=== PATIENT | male | born 1960 | race American Indian/Alaskan Native ===

== ENCOUNTER 2018-06-10 20:35 | Emergency (ER) | payer MEDICARE ==
[2018-06-10] MEDS ORDERED: BENADRYL IV ONE (20:53)
[2018-06-10] MEDS ORDERED: REGLAN IV ONE (20:53)
[2018-06-10 21:02] LABS: Basophils # (Auto) 0.1 K/mm3 (0.0-0.1); Basophils % (Auto) 0.8 % (0.0-1.8); Eosinophils # (Auto) 0.2 K/mm3 (0.0-0.4); Eosinophils % (Auto) 1.5 % (0.0-4.3); Hematocrit 44.4 % (35.5-45.6); Hemoglobin 14.8 gm/dl (11.8-15.2); Lymphocytes # (Auto) 3.1 K/mm3 (1.2-5.4); Lymphocytes % (Auto) 20.3 % (13.4-35.0); Mean Corpuscular HGB Conc 33 % (32-34); Mean Corpuscular Hemoglobin 31 pg (28-32); Mean Corpuscular Volume 92 fl (84-94); Monocytes # (Auto) 0.9 K/mm3 (0.0-0.8); Monocytes % (Auto) 5.7 % (0.0-7.3); Platelet Count 157 K/mm3 (140-440); Red Blood Count 4.84 M/mm3 (3.65-5.03); Red Cell Distribution Width 14.7 % (13.2-15.2)
[2018-06-10 21:18] LABS: BUN/Creatinine Ratio 13; Blood Urea Nitrogen 17 mg/dL (9-20); Calcium 9.3 mg/dL (8.4-10.2); Hemolysis Index 147
--- NOTE | 2018-06-10 22:33 | Cat Scan Report ---
FINAL REPORT PROCEDURE: CT HEAD/BRAIN WO CON TECHNIQUE: Computerized tomography of the head was performed without contrast material. HISTORY: headache COMPARISON: No prior studies are available for comparison. FINDINGS: There has been left frontal craniotomy. There are coils at the left skullbase. There is involutional change with ex vacuo dilatation of the left frontal and temporal horns. There is chronic ischemic change involving left basal ganglia. There is no CT evidence of intracranial mass, hemorrhage, acute territorial infarction, or hydrocephalus. No acute fracture is seen. Visualized paranasal sinuses and mastoids are aerated. IMPRESSION: Postsurgical changes and chronic changes as described above. No CT evidence of acute intracranial abnormality
--- NOTE | 2018-06-11 01:16 | Emergency Department Report ---
ED General Adult HPI - General Chief complaint: Neuro Symptoms/Deficit Stated complaint: HEAD PAIN Time Seen by Provider: 06/10/18 20:53 Source: EMS Mode of arrival: Stretcher Limitations: No Limitations - History of Present Illness Initial comments: Patient is a 57 year old male pmhx of brain aneurysm who presents with a headache. Patient's pain is located at the front of his forehead. Nothing makes the pain better or worse. He states He states that he felt that hsi body got weak. He denies any nausea or vomiting. He states that he smokes a ppd. - Related Data Previous Rx's Medication Instructions Recorded Last Taken Type Labetalol [Normodyne TAB] 200 mg PO BID #60 tablet 03/16/14 10/20/15 Rx Lisinopril [Zestril TAB] 20 mg PO BID #60 tablet 03/16/14 10/20/15 Rx Pantoprazole [Protonix] 40 mg PO QDAY #30 tablet 03/16/14 10/20/15 Rx hydrALAZINE [Apresoline TAB] 50 mg PO Q8HR #90 tablet 03/16/14 10/20/15 Rx traMADol [Ultram] 50 mg PO Q4HR PRN #20 tablet 10/08/15 10/20/15 Rx Butalb/Acetamin/Caff 50-325-40 1 tab PO Q8HR PRN #20 tablet 06/11/18 Unknown Rx [Fioricet] Allergies Allergy/AdvReac Type Severity Reaction Status Date / Time Penicillins AdvReac Hives Verified 03/13/14 13:44 ED Review of Systems ROS: Stated complaint: HEAD PAIN Other details as noted in HPI Constitutional: denies: chills, fever Eyes: denies: eye pain, eye discharge, vision change ENT: denies: ear pain, throat pain Respiratory: denies: cough, shortness of breath, wheezing Cardiovascular: denies: chest pain, palpitations Endocrine: no symptoms reported Gastrointestinal: denies: abdominal pain, nausea, diarrhea Genitourinary: denies: urgency, dysuria Musculoskeletal: denies: back pain, joint swelling, arthralgia Skin: denies: rash, lesions Neurological: headache. denies: weakness, paresthesias Psychiatric: denies: anxiety, depression Hematological/Lymphatic: denies: easy bleeding, easy bruising ED Past Medical Hx - Past Medical History Previous Medical History?: Yes Hx Hypertension: Yes Hx Congestive Heart Failure: No Hx Diabetes: No Hx Asthma: No Hx COPD: No Additional medical history: brain aneuysysm, stomach cancer - Surgical History Past Surgical History?: Yes Additional Surgical History: brain, abd - Social History Smoking Status: Current Every Day Smoker Substance Use Type: None - Medications Home Medications: Home Medications Medication Instructions Recorded Confirmed Last Taken Type Labetalol [Normodyne TAB] 200 mg PO BID #60 tablet 03/16/14 10/21/15 10/20/15 Rx Lisinopril [Zestril TAB] 20 mg PO BID #60 tablet 03/16/14 10/21/15 10/20/15 Rx Pantoprazole [Protonix] 40 mg PO QDAY #30 tablet 03/16/14 10/21/15 10/20/15 Rx hydrALAZINE [Apresoline TAB] 50 mg PO Q8HR #90 tablet 03/16/14 10/21/15 Rx traMADol [Ultram] 50 mg PO Q4HR PRN #20 tablet 10/08/15 10/21/15 10/20/15 Rx Butalb/Acetamin/Caff 50-325-40 1 tab PO Q8HR PRN #20 tablet 06/11/18 Unknown Rx [Fioricet] ED Physical Exam - General Limitations: No Limitations General appearance: alert, in no apparent distress - Head Head exam: Present: atraumatic, normocephalic - Eye Eye exam: Present: normal appearance - ENT ENT exam: Present: mucous membranes moist - Neck Neck exam: Present: normal inspection - Respiratory Respiratory exam: Present: normal lung sounds bilaterally. Absent: respiratory distress - Cardiovascular Cardiovascular Exam: Present: regular rate, normal rhythm. Absent: systolic murmur, diastolic murmur, rubs, gallop - GI/Abdominal GI/Abdominal exam: Present: soft, normal bowel sounds - Rectal Rectal exam: Present: deferred - Extremities Exam Extremities exam: Present: normal inspection - Back Exam Back exam: Present: normal inspection - Neurological Exam Neurological exam: Present: alert, oriented X3 - Psychiatric Psychiatric exam: Present: normal affect, normal mood - Skin Skin exam: Present: warm, dry, intact, normal color. Absent: rash ED Course Vital Signs 06/10/18 06/10/18 06/10/18 20:55 21:16 21:30 Temperature 97.3 F L Pulse Rate 53 L 55 L 56 L Respiratory 18 20 13 Rate Blood Pressure 122/53 104/74 122/83 O2 Sat by Pulse 92 99 100 Oximetry 06/10/18 06/10/18 06/10/18 21:45 22:16 22:30 Temperature Pulse Rate 58 L 58 L 58 L Respiratory 14 11 L 13 Rate Blood Pressure 114/77 113/74 106/74 O2 Sat by Pulse 100 100 100 Oximetry 06/10/18 06/10/18 06/10/18 22:39 22:46 23:00 Temperature Pulse Rate 55 L 56 L Respiratory 20 11 L 13 Rate Blood Pressure 112/74 104/72 O2 Sat by Pulse 100 100 100 Oximetry 06/10/18 06/10/18 06/10/18 23:16 23:30 23:46 Temperature Pulse Rate 58 L 57 L 58 L Respiratory 11 L 11 L 11 L Rate Blood Pressure 104/72 104/72 108/71 O2 Sat by Pulse 100 100 100 Oximetry 06/11/18 00:00 Temperature Pulse Rate 54 L Respiratory 13 Rate Blood Pressure 105/72 O2 Sat by Pulse 99 Oximetry ED Medical Decision Making - Lab Data Result diagrams: 06/10/18 20:49 06/10/18 21:00 Lab Results 06/10/18 06/10/18 Range/Units 20:49 21:00 WBC 15.1 H (4.5-11.0) K/mm3 RBC 4.84 (3.65-5.03) M/mm3 Hgb 14.8 (11.8-15.2) gm/dl Hct 44.4 (35.5-45.6) % MCV 92 (84-94) fl MCH 31 (28-32) pg MCHC 33 (32-34) % RDW 14.7 (13.2-15.2) % Plt Count 157 (140-440) K/mm3 Lymph % (Auto) 20.3 (13.4-35.0) % Tripp % (Auto) 5.7 (0.0-7.3) % Eos % (Auto) 1.5 (0.0-4.3) % Baso % (Auto) 0.8 (0.0-1.8) % Lymph # 3.1 (1.2-5.4) K/mm3 Tripp # 0.9 H (0.0-0.8) K/mm3 Eos # 0.2 (0.0-0.4) K/mm3 Baso # 0.1 (0.0-0.1) K/mm3 Seg Neutrophils % 71.7 H (40.0-70.0) % Seg Neutrophils # 10.8 H (1.8-7.7) K/mm3 Sodium 138 (137-145) mmol/L Potassium 5.4 H (3.6-5.0) mmol/L Chloride 102.8 (98-107) mmol/L Carbon Dioxide 22 (22-30) mmol/L Anion Gap 19 mmol/L BUN 17 (9-20) mg/dL Creatinine 1.3 (0.8-1.5) mg/dL Estimated GFR > 60 ml/min BUN/Creatinine Ratio 13 % Glucose 126 H (75-100) mg/dL Calcium 9.3 (8.4-10.2) mg/dL - EKG Data -: EKG Interpreted by Me - EKG Data 06/11/18 01:22 EKG shows normal sinus rhythm no ST segment elevation or T wave Inversion - Radiology Data Radiology results: report reviewed, image reviewed CT Head: shows prior surgical clipping no acute intracranial bleed - Medical Decision Making Cdx: Tension Headache ddx: Subdural hemorrhage, Migraine Headache I will give headache cocktail, ct scan of head, cbc, bmp and ekg CT scan shows prior surgical clipping of aneurysm but no acute intracrainal bleed. Patient is feeling better I will send patient home with [facility]. 06/11/18 01:26 Spent 5 minutes talking about tobacco cessation counseling and nicotine patch and gum. Critical care attestation.: If time is entered above; I have spent that time in minutes in the direct care of this critically ill patient, excluding procedure time. ED Disposition Clinical Impression: Tension headache, Tobacco abuse, Tobacco abuse counseling Disposition: TO HOME OR SELFCARE Is pt being admited?: No Does the pt Need Aspirin: No Condition: Stable Prescriptions: Butalb/Acetamin/Caff 50-325-40 [Fioricet] 1 tab PO Q8HR PRN #20 tablet PRN Reason: Headache Referrals: ONEL LAND MD [Staff Physician] - 3-5 Days
[2018-06-11 02:32] VITALS: BP 102/66
== END 2018-06-11 02:19 | disposition home or self-care (01) ==
LOC: ED 20:35
DX: F19.10 Other psychoactive substance abuse, uncomplicated (principal); I10 Essential (primary) hypertension; F17.200 Nicotine dependence, unspecified, uncomplicated; Z88.0 Allergy status to penicillin; Z85.028 Personal history of other malignant neoplasm of stomach; Z79.899 Other long term (current) drug therapy
CPT/HCPCS: 36415; 70450; 80048; 85025; 93005; 93010; 96374; 96375; 99285; J1200; J2765